=== PATIENT | male | born 2000 | race Caucasian/White ===

== ENCOUNTER 2023-10-22 21:06 | Emergency (ER) | payer OTHER ==
[2023-10-22] MEDS ORDERED: Tetracaine 0.5% PF 4 ML BOT ONE (22:19)
[2023-10-22] MEDS ORDERED: Fluorescein Opthalmic Strip ONE (22:19)
== END 2023-10-22 22:35 | disposition home or self-care (01) ==
LOC: CSHERS 21:06
DX: S05.92XA Unspecified injury of left eye and orbit, initial encounter (principal); W50.1XXA Accidental kick by another person, initial encounter
CPT/HCPCS: 99283